=== PATIENT | male | born 1965 | race Caucasian/White ===

== ENCOUNTER 2022-10-05 12:04 | Emergency (ER) | payer BC ==
--- NOTE | 2022-10-05 12:33 | ED Physician Documentation ---
History of Present Illness - Stated complaint Stated Complaint: CHEST PX/COLD SWEATS - Chief complaint Chief Complaint: Cardiac - Additonal information Additional information: 57-year-old male who has a history of hypertension presents to the emergency department for feeling of chest pressure some associated lightheadedness and diaphoresis. Chest pressure was not exertional. It does not radiate. No history of similar. Symptoms began about 1 hour prior to arrival. He did not have any fainting episodes. No vomiting. Does have a history of hypertension for which she is on lisinopril. No tobacco use. He is on Lyrica for depression and trazodone for sleep. He has a remote history of PSVT status post ablation 18 years ago. Is not currently followed by lining brusher. History is obtained from the patient Review of Systems Constitutional: denies: Fever, Chills Cardiac: reports: Chest pain / pressure. denies: Palpitations, Pedal edema, Calf pain Respiratory: denies: Dyspnea, Cough GI: reports: Reviewed and negative : reports: Reviewed and negative Skin: reports: Reviewed and negative Musculoskeletal: reports: Reviewed and negative Neurologic: reports: Reviewed and negative PD PAST MEDICAL HISTORY - Present Medications Home Medications: Ambulatory Orders Medication Instructions Recorded Confirmed DULoxetine [Cymbalta] 40 mg PO DAILY 10/05/22 10/05/22 Lisinopril [Zestril] 10 mg PO DAILY 10/05/22 10/05/22 Nitroglycerin [Nitrostat] 0.4 mg SL Q5MIN PRN #25 tablet 10/05/22 traZODone [Desyrel] 50 - 100 mg PO HS PRN 10/05/22 10/05/22 - Allergies Allergies/Adverse Reactions: Allergies Allergy/AdvReac Type Severity Reaction Status Date / Time amoxicillin Allergy Unknown Verified 10/05/22 12:18 PD ED PE NORMAL - General General: Alert and oriented X 3, No acute distress, Well developed/nourished - HEENT HEENT: Atraumatic, Moist mucous membranes - Neck Neck: Supple, no meningeal sign, No adenopathy - Cardiac Cardiac: RRR, No murmur, Strong equal pulses - Respiratory Respiratory: No respiratory distress, Clear bilaterally - Abdomen Abdomen: Normal bowel sounds, Soft, Non tender - Back Back: No CVA TTP, No spinal TTP - Derm Derm: Normal color, Warm and dry, No rash - Neuro Neuro: Alert and oriented X 3, caustic strength inspector 2-12 intact Eye Opening: Spontaneous Motor: Obeys Commands Verbal: Oriented GCS Score: 15 Results - Vitals Vitals: Vital Signs - 24 hr 10/05/22 10/05/22 12:12 12:44 Temperature 36.0 C L Heart Rate 109 H 91 Respiratory 20 26 H Rate Blood Pressure 186/97 H 181/96 H O2 Saturation 98 99 Oxygen O2 Source Room air - EKG (time done) 1211 Rate: Rate (enter#) (98) Rhythm: NSR [place]: Normal Intervals: No: Prolonged QT QRS: Normal Ischemia: Q waves (inferior and anterior leads) Compare to prior EKG: Old EKG unavailable Computer interpretation: Agree with computer - Labs Labs: Laboratory Tests 10/05/22 10/05/22 10/05/22 12:36 12:36 12:36 WBC 8.1 RBC 5.19 Hgb 16.3 Hct 47.6 MCV 91.7 MCH 31.4 H MCHC 34.2 RDW 12.6 Plt Count 214 MPV 10.7 Neut # (Auto) 5.5 Lymph # (Auto) 1.8 [place] # (Auto) 0.7 Eos # (Auto) 0.0 Baso # (Auto) 0.0 Absolute Nucleated RBC 0.00 Nucleated RBC % 0.0 Sodium 136 Potassium 3.6 Chloride 102 Carbon Dioxide 25 Anion Gap 9.0 BUN 17 Creatinine 1.0 Estimated GFR (MDRD) 76 L Glucose 118 H Calcium 9.4 Total Bilirubin 0.9 AST 38 ALT 62 H Alkaline Phosphatase 54 Troponin I High Sens 3.3 Total Protein 8.1 Albumin 4.7 Globulin 3.4 Albumin/Globulin Ratio 1.4 Lipase 38 10/05/22 15:30 WBC RBC Hgb Hct MCV MCH MCHC RDW Plt Count MPV Neut # (Auto) Lymph # (Auto) [place] # (Auto) Eos # (Auto) Baso # (Auto) Absolute Nucleated RBC Nucleated RBC % Sodium Potassium Chloride Carbon Dioxide Anion Gap BUN Creatinine Estimated GFR (MDRD) Glucose Calcium Total Bilirubin AST ALT Alkaline Phosphatase Troponin I High Sens 3.4 Total Protein Albumin Globulin Albumin/Globulin Ratio Lipase PD Medical Decision Making - ED course Complexity details: considered differential, d/w patient ED course: 57-year-old male presents to the emergency department for evaluation of chest pain and pressure with some diaphoresis that occurred about an hour prior to arrival. He has been intermittently having this chest pain for a few days. On presentation to the emergency department he was alert and well-appearing. He was initially given 324 of aspirin as well as a single dose of nitroglycerin and on reevaluation his pain had improved. An EKG does show some Q waves in the inferior and anterior leads. There is no previous for comparison. His initial troponin was negative. However he arrived just about 1 hour after the chest pain event. A second troponin was obtained and remained negative. His heart score is 3 putting him at low risk for 30-day MACE I discussed with the patient that his symptoms were concerning for angina. He is not currently associated with a lining brusher but he declines to remain in the ER for a consultation that I could have over the phone with a lining brusher. He states that he can follow with his primary care doctor. He was notified that he needs an urgent stress test and echocardiogram. He is discharged with a prescription for nitroglycerin and advised to begin taking a daily 81 mg aspirin. Emergent return precautions were discussed. Departure - Departure Disposition: 01 Home, Self Care Clinical Impression: Chest pain Qualifiers: Ischemic chest pain type: other angina pectoris type Condition: Stable Record reviewed to determine appropriate education?: Yes Instructions: Nitroglycerin Fast Act Dc, ED Heart Disease Risk Factors Prescriptions: Nitroglycerin [Nitrostat] 0.4 mg SL Q5MIN PRN #25 tablet PRN Reason: Chest Pain
[2022-10-05] MEDS ORDERED: ASPIRIN CHEW 81 MG TABLET PO STA (12:34)
[2022-10-05] MEDS ORDERED: NITROGLYCERIN SL 0.4 MG TABLET SL STA (12:34)
[2022-10-05 12:50] LABS: BASOPHILS % (AUTO) 0.4 %; EOSINOPHILS % (AUTO) 0.5 %; HCT - HEMATOCRIT 47.6 % (42.0-52.0); HGB - HEMOGLOBIN 16.3 g/dL (14.0-18.0); LYMPHOCYTES # (AUTO) 1.8 10^3/uL (1.5-3.5); LYMPHOCYTES % (AUTO) 22.2 %; MEAN CORPUSCULAR HEMOGLOBIN 31.4 pg (27.0-31.0); MEAN CORPUSCULAR HGB CONC 34.2 g/dL (32.0-36.0); MEAN CORPUSCULAR VOLUME 91.7 fL (80.0-94.0); MEAN PLATELET VOLUME 10.7 fL (7.4-11.4); MONOCYTES # (AUTO) 0.7 10^3/uL (0.0-1.0); NEUTROPHILS # (AUTO) 5.5 10^3/uL (1.5-6.6); NEUTROPHILS % (AUTO) 68.4 %; PLT - PLATELET COUNT 214 10^3/uL (130-450); RED BLOOD COUNT 5.19 10^6/uL (4.70-6.10); RED CELL DISTRIBUTION WIDTH 12.6 % (12.0-15.0); WHITE BLOOD COUNT 8.1 x10^3/uL (4.8-10.8)
[2022-10-05 13:10] LABS: ALBUMIN 4.7 g/dL (3.2-5.5); ALBUMIN/GLOBULIN RATIO 1.4 (1.0-2.2); BILIRUBIN,TOTAL 0.9 mg/dL (0.2-1.0); CALCIUM 9.4 mg/dL (8.5-10.3); POTASSIUM 3.6 mmol/L (3.5-5.0); TOTAL PROTEIN 8.1 g/dL (6.7-8.2)
--- NOTE | 2022-10-05 14:13 | XRAY Report ---
PROCEDURE: Chest 1 View X-Ray INDICATIONS: Chest Pain TECHNIQUE: One view of the chest was acquired. COMPARISON: None. FINDINGS: Surgical changes and devices: None. Lungs and pleura: No pleural effusions or pneumothorax. Lungs are clear. Mediastinum: Mediastinal contours appear normal. Heart size is normal. Bones and chest wall: No suspicious bony lesions. Overlying soft tissues appear unremarkable. IMPRESSION: No evidence acute pulmonary process. Reviewed by: Dave Mcneill MD on 10/05/2022 2:11 PM PST Approved by: Dave Mcneill MD on 10/05/2022 2:11 PM PST Station ID: [id number]
[2022-10-05 14:33] VITALS: BP 165/97
== END 2022-10-05 14:37 | disposition home or self-care (01) ==
LOC: ED 12:04
DX: I20.8 Other forms of angina pectoris (principal); I11.9 Hypertensive heart disease without heart failure
CPT/HCPCS: 36415; 71045; 80053; 83690; 84484; 85025; 93005; 99283; 99284; A9270